=== PATIENT | male | born 1990 | race Two or more races ===

== ENCOUNTER 2021-08-14 08:07 | Inpatient (IN) | payer OTHER ==
[~2021-08-14] VITALS: Ht 157.5 cm; Wt 90.7 kg
[2021-08-14] MEDS ORDERED: ACETAMINOPHEN 325 MG TABLET ONE (08:25)
[2021-08-14] MEDS ORDERED: ACETAMINOPHEN 325 MG TABLET PO ONE (08:30)
[2021-08-14 08:59] LABS: BASOPHILS % (AUTO) 0.7 % (0.0-2.0); EOSINOPHILS % (AUTO) 3.3 % (0.0-6.0); HEMATOCRIT 43 % (39-51); HEMOGLOBIN 14.3 g/dL (13.5-17.5); LYMPHOCYTES # (AUTO) 1.4 K/uL (0.8-4.8); LYMPHOCYTES % (AUTO) 22.6 % (20.0-44.0); MEAN CORPUSCULAR HGB CONC 33 g/dl (31.0-36.0); MEAN CORPUSCULAR VOLUME 82 fL (80-96); MONOCYTES # (AUTO) 0.6 K/uL (0.1-1.30); MONOCYTES % (AUTO) 10.3 % (2.0-12.0); NEUTROPHILS # (AUTO) 3.8 K/uL (1.8-8.9); NEUTROPHILS % (AUTO) 63.1 % (43.0-81.0); PLATELET COUNT (AUTO) 499 K/uL (150-450); RED BLOOD CELL COUNT(AUTO) 5.25 MIL/uL (4.5-6.0); WHITE BLOOD COUNT (AUTO) 6.1 K/uL (4.3-11.0)
[2021-08-14] MEDS ORDERED: PIPERACILLIN /TAZOBACTAM 3.375 G in IV D5W 50 ML IV ONE (09:00)
[2021-08-14] MEDS ORDERED: IV NS 0.9% 1,000 ML BAG IV ONE (09:00)
[2021-08-14] MEDS ORDERED: VANCOMYCIN 1 GM in IV D5W 250 ML IV ONE (09:00)
[2021-08-14 09:38] LABS: CALCIUM, SERUM 9.2 mg/dL (8.5-10.1); CREATININE 0.9 mg/dL (0.6-1.3)
[2021-08-14 10:40] LABS: POTASSIUM 4.2 mmol/L (3.5-5.1)
[2021-08-14] MEDS ORDERED: Z GUARD REMEDY 4 OZ OINT TP PRN (16:00)
[2021-08-14] MEDS ORDERED: MAGNESIUM HYDROXIDE 30 ML UDC PO PRN (16:00)
[2021-08-14] MEDS ORDERED: ONDANSETRON HCL/PF 4 MG/2 ML VIAL IVP PRN (16:00)
[2021-08-14] MEDS ORDERED: ACETAMINOPHEN 325 MG TABLET PO PRN (16:00)
[2021-08-14] MEDS: HYDROCODONE/APAP 5/325MG TABLET PO PRN (17:57)
[2021-08-14] MEDS ORDERED: PIPERACILLIN /TAZOBACTAM 3.375 G in IV D5W 50 ML IV SCH (18:00)
[2021-08-14] MEDS ORDERED: VANCOMYCIN 1 GM in IV D5W 250 ML IV SCH (18:00)
[2021-08-14 20:00] VITALS: BP 145/87
[2021-08-14] MEDS ORDERED: CEFAZOLIN 1 GM VIAL IM SCH (22:30)
[2021-08-15] MEDS ORDERED: CEFAZOLIN 2 GM in IV D5W 100 ML IV SCH (07:00)
[2021-08-15 07:42] LABS: BASOPHILS % (AUTO) 0.8 % (0.0-2.0); EOSINOPHILS % (AUTO) 5.5 % (0.0-6.0); HEMATOCRIT 43 % (39-51); HEMOGLOBIN 14.5 g/dL (13.5-17.5); LYMPHOCYTES # (AUTO) 1.5 K/uL (0.8-4.8); MEAN CORPUSCULAR HGB CONC 34 g/dl (31.0-36.0); MEAN CORPUSCULAR VOLUME 82 fL (80-96); MONOCYTES # (AUTO) 0.6 K/uL (0.1-1.30); MONOCYTES % (AUTO) 9.8 % (2.0-12.0); NEUTROPHILS # (AUTO) 3.4 K/uL (1.8-8.9); NEUTROPHILS % (AUTO) 57.9 % (43.0-81.0); PLATELET COUNT (AUTO) 470 K/uL (150-450); RED BLOOD CELL COUNT(AUTO) 5.18 MIL/uL (4.5-6.0); WHITE BLOOD COUNT (AUTO) 5.9 K/uL (4.3-11.0)
[2021-08-15 07:59] LABS: CALCIUM, SERUM 9.3 mg/dL (8.5-10.1); CREATININE 0.9 mg/dL (0.6-1.3); MAGNESIUM 2.2 mg/dL (1.8-2.4); PHOSPHORUS 2.9 mg/dL (2.5-4.9)
[2021-08-15 08:00] VITALS: BP 123/86
[2021-08-15] MEDS: VANCOMYCIN 1 GM in IV D5W 250 ML IV SCH ×2 (14:49→22:17)
[2021-08-15] MEDS: HYDROCODONE/APAP 5/325MG TABLET PO PRN (19:34)
[2021-08-15 20:00] VITALS: BP 121/68
[2021-08-16 04:00] VITALS: BP 130/54
[2021-08-16] MEDS: VANCOMYCIN 1 GM in IV D5W 250 ML IV SCH ×3 (05:57→22:03)
[2021-08-16 07:01] LABS: BASOPHILS # (AUTO) 0.1 K/uL (0.0-0.2); BASOPHILS % (AUTO) 0.7 % (0.0-2.0); EOSINOPHILS % (AUTO) 4.4 % (0.0-6.0); HEMATOCRIT 47 % (39-51); HEMOGLOBIN 15.7 g/dL (13.5-17.5); LYMPHOCYTES # (AUTO) 2.1 K/uL (0.8-4.8); LYMPHOCYTES % (AUTO) 26.7 % (20.0-44.0); MEAN CORPUSCULAR HGB CONC 34 g/dl (31.0-36.0); MEAN CORPUSCULAR VOLUME 83 fL (80-96); MONOCYTES # (AUTO) 0.7 K/uL (0.1-1.30); MONOCYTES % (AUTO) 8.9 % (2.0-12.0); NEUTROPHILS # (AUTO) 4.6 K/uL (1.8-8.9); NEUTROPHILS % (AUTO) 59.3 % (43.0-81.0); PLATELET COUNT (AUTO) 498 K/uL (150-450); RED BLOOD CELL COUNT(AUTO) 5.63 MIL/uL (4.5-6.0); WHITE BLOOD COUNT (AUTO) 7.8 K/uL (4.3-11.0)
[2021-08-16 07:06] LABS: CALCIUM, SERUM 9.7 mg/dL (8.5-10.1); MAGNESIUM 2.3 mg/dL (1.8-2.4); PHOSPHORUS 3.7 mg/dL (2.5-4.9)
[2021-08-16 08:00] VITALS: BP 119/89
[2021-08-16 16:06] VITALS: BP 119/74
[2021-08-16 20:00] VITALS: BP 122/84
[2021-08-16 20:49] VITALS: BP 122/84
[2021-08-17] MEDS: VANCOMYCIN 1 GM in IV D5W 250 ML IV SCH ×3 (05:58→22:15)
[2021-08-17 06:14] LABS: CALCIUM, SERUM 9.5 mg/dL (8.5-10.1); POTASSIUM 3.8 mmol/L (3.5-5.1)
[2021-08-17 08:00] VITALS: BP 110/75
[2021-08-17] MEDS: HYDROCODONE/APAP 5/325MG TABLET PO PRN (15:32)
[2021-08-17 16:00] VITALS: BP 106/69
[2021-08-17 20:00] VITALS: BP 118/54
[2021-08-18] MEDS: VANCOMYCIN 1 GM in IV D5W 250 ML IV SCH (06:15)
[2021-08-18 06:59] LABS: CALCIUM, SERUM 9.4 mg/dL (8.5-10.1); POTASSIUM 4.1 mmol/L (3.5-5.1)
[2021-08-18] MEDS ORDERED: VANC1PLA9 IV (09:08)
== END 2021-08-18 14:00 | DRG 541 ==
LOC: ER 08:07 → TRANSITION 13:43 → MED 14:54
PROVIDERS: ADMIT Nurse Practitioner Family; ATTEND Internal Medicine
PROC: 05HC33Z Insertion of Infusion Device into Left Basilic Vein, Percutaneous Approach (ICD-10-PCS; principal; 2021-08-18)
DX: M86.142 Other acute osteomyelitis, left hand (principal); D75.839 Thrombocytosis, unspecified; F19.10 Other psychoactive substance abuse, uncomplicated; S62.522A Displaced fracture of distal phalanx of left thumb, initial encounter for closed fracture; Y92.89 Other specified places as the place of occurrence of the external cause; Y99.9 Unspecified external cause status; Z53.29 Procedure and treatment not carried out because of patient's decision for other reasons; Z22.322 Carrier or suspected carrier of Methicillin resistant Staphylococcus aureus; Z22.321 Carrier or suspected carrier of Methicillin susceptible Staphylococcus aureus; W34.00XS Accidental discharge from unspecified firearms or gun, sequela; W23.0XXA Caught, crushed, jammed, or pinched between moving objects, initial encounter; F12.90 Cannabis use, unspecified, uncomplicated
CPT/HCPCS: 36415; 73130-TC; 80048-TC; 80202-TC; 83605-TC; 83735-TC; 84100-TC; 85025-TC; 85652-TC; 86140-TC; 87040-TC; 87081-TC; C9803; G0378; J0690; J2543; J3370; J7030; J7050; J7060